=== PATIENT | female | born 1960 | race Caucasian/White ===

== ENCOUNTER 2022-03-06 00:32 | Day surgery (SDC) | payer OTHER, SELFPAY ==
[2022-01-16 12:54] VITALS: BMI 31.2
--- NOTE | 2022-01-16 12:58 | PC.NURSE ---
Report to the Outpatient Waiting Room, entrance under the green pavilion located off [facility], at time __1130__ on date __01/23/22 . OR Time: _1330_. - You and your visitor will be asked a series of questions to screen for COVID 19 for your protection. - Only one visitor is allowed at this time. - The patient visitor is requested to leave or wait in car when not with patient. - A mask is required within the hospital. Patients may have clear liquids (water, carbonated beverages, clear teas, apple juice) until 3 hours prior to surgery with a maximum of 20 ounces. - No food from midnight until time of surgery - Infants may have breast milk until 4 hours before surgery, infant formula 6 hours prior to surgery. - Children will be allowed to drink immediately following surgery. If applicable, please bring a bottle or sippy cup to assist with drinking. Juice, water, soda, and popsicles are readily available. For infants on formula, please bring formula the day of surgery. Pacifiers are allowed. Take the following medications with a SIP of water the morning of surgery: NONE Medications to discontinue per physician NONE Date to take last dose Please no make-up, nail senegalese, hairspray, perfume, deodorant, or body powder the day of surgery. No jewelry (including any body piercings) or valuables the day of surgery, leave them at home. Please take a shower or bath the night before, or the morning of, surgery with an antibacterial soap. Wear comfortable, loose fitting clothing. Children are encouraged to wear pajamas. - Jewelry must be removed prior to entering the operating room. Rings and piercings that are not removed may be cut off. - The hospital will not accept responsibility for valuables. - Please leave all valuables, including medications, at home the day of surgery. If you are going home after surgery, a licensed chassis driver must drive you home. - NO public transportation without another adult. - We recommend that an adult stay with you for 24 hours following discharge. - We also recommend that you do not drive, make important decision, drink alcoholic beverages, or take any drugs that were not prescribed by your health care provider for at least 24 hours after your discharge time. For Pediatric surgeries, we recommend two adults accompany the child home (only one inside the building at this time). Follow any additional instructions given to you from your surgeon. If you or anyone in your household have experienced Covid symptoms in the past week, please notify your surgeon or the nurse liaison at the phone number below for possible testing. Telephone instructions given to __PATIENT__and asked if any additional questions and then verbalized understanding. Patient advised to call surgeon office or pre surgery nurse liaison [phone] if any additional questions.
[2022-02-27 14:44] VITALS: BMI 31.2
--- NOTE | 2022-02-27 15:01 | PC.NURSE ---
Addendum entered by Destiny Vidal RN 02/27/22 15:08: [employer] 03/03/22 Original Note: Report to the Outpatient Waiting Room, entrance under the green pavilion located off [facility], at time __1045 on date 03/06/22_. OR Time: _1245 . Time changes happen often and if your time is changed the preop area will call you the afternoon before. - You and your visitor will be asked to self-screen and do not enter if you have any COVID symptoms. - Only one visitor and NO children visitors are allowed at this time. - The patient visitor is requested to leave or wait in car when not with patient due to restrictions. - A mask is required within the hospital. Patients may have clear liquids (water, carbonated beverages, clear teas, apple juice) until 3 hours prior to surgery with a maximum of 20 ounces. - No food from midnight until time of surgery - Take the following medications with a SIP of water the morning of surgery: ____NONE Medications to discontinue per physician NONE Date to take last dose___NONE Please no make-up, nail english, hairspray, perfume, deodorant, or body powder the day of surgery. No jewelry (including any body piercings) or valuables the day of surgery, leave them at home. Please take a shower or bath the night before, or the morning of, surgery with an antibacterial soap. Wear comfortable, loose fitting clothing. Children are encouraged to wear pajamas. - Jewelry must be removed prior to entering the operating room. Rings and piercings that are not removed may be cut off. - The hospital will not accept responsibility for valuables. - Please leave all valuables, including medications, at home the day of surgery. If you are going home after surgery, a licensed electric pile driver operator must drive you home. - NO public transportation without another adult. - We recommend that an adult stay with you for 24 hours following discharge. - We also recommend that you do not drive, make important decision, drink alcoholic beverages, or take any drugs that were not prescribed by your health care provider for at least 24 hours after your discharge time. Follow any additional instructions given to you from your surgeon. If you or anyone in your household have experienced Covid symptoms in the past week, please notify your surgeon or the nurse liaison at the phone number below for possible testing. Telephone instructions given to __ALEX___and asked if any additional questions and then verbalized understanding. Patient advised to call surgeon office or pre surgery nurse liaison [phone] if any additional questions.
--- NOTE | 2022-03-06 08:31 | WPDHPUPDATE1 ---
History and Physical Update Update Date/Time: 03/06/22 08:31 History and Physical has been reviewed, including an updated exam of the patient. There are NO changes in the patient's condition. Risks, benefits, and alternatives have been discussed and questions answered. Patient agrees to proceed with procedure.
--- NOTE | 2022-03-06 08:32 | PM.HPGS ---
History of Present Illness History of Present Illness Consent: Risks, benefits, and alternatives have been discussed and questions answered. Patient agrees to proceed with procedure. Chief complaint: Post Menopaual Bleeding Narrative: Dana Dozier is a 61 year old female who saw her primary physician in November for postmenopausal bleeding. Workup included a pelvic ultrasound which revealed a 1cm thickened endometrium. Patient was therefore referred for further workup. Patient was initially scheduled for hysteroscopy D&C but developed COVID and had to be rescheduled. Patient presents today for D&C hysteroscopy. Risks of infection, bleeding, perforation, and possible pathology were reviewed. Patient voices understanding and agrees to proceed. 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 Social History Social History (Updated 02/27/22 @ 14:59 by Destiny Vidal RN) Smoking status: Never smoker Substance use: never Living arrangements: with family Spiritual care concerns: No Meds Home Medications and Allergies Home Medications Medication Instructions Recorded Confirmed Type lactobacillus combination no.8 3 3 cell PO DAILY 01/16/22 01/16/22 History billion cell capsule Allergies Allergy/AdvReac Type Severity Reaction Status Date / Time No Known Allergies Allergy Verified 01/16/22 12:51 Exam Const: General: healthy appearing and alert Orientation/consciousness: patient oriented x3 Resp: Effort & Inspection: normal respiratory effort GI: GI Palp: Yes Soft to palpation, No Tenderness to palpation present (GI) and No Palpable mass present : External Female Exam: normal external appearance Speculum Exam - Vagina: normal appearance of the vagina and normal vaginal discharge Speculum Exam - Cervix: normal appearance of the cervix Bimanual exam- vagina & uterus: uterine size normal and consistency normal Bimanual Exam- Adnexa, other: normal adnexae and No adnexal tenderness Neuro: General: patient oriented x3 Assessment and Plan Assessment and plan (1) Post-menopausal bleeding: Code(s): N95.0 - Postmenopausal bleeding Status: Acute Assessment and Plan: Plan to proceed with D&C hysteroscopy
[2022-03-06 11:00] VITALS: BP 154/85; PULSE 66; RESP 16; TEMP 36.5; O2SAT 99
[2022-03-06 11:23] VITALS: BMI 31.0
[2022-03-06] MEDS: LACTATED RINGERS 1,000 ML 30 ML IV CONT (11:25)
[2022-03-06] MEDS: ACETAMINOPHEN 500 MG TABLET 1000 MG PO (11:33)
--- NOTE | 2022-03-06 11:46 | P.PNAN_ITS ---
Anes - Initial Pre Proc Eval Procedure: Operation Date: 03/06/22 12:45 Proposed Procedures p Hysteroscopy Dilation and Curettage - Dora Caba MD Date/Time: 03/06/22 11:46 Surgeon: Dora Caba MD Pre Op Diagnosis: Post Menopausal Bleeding Patient Data Age: 61 Gender: F Height: 1.55 m Weight: 74.5 kg Last Vital Signs Temp 36.5 C 03/06/22 11:00 Pulse 66 03/06/22 11:00 Resp 16 03/06/22 11:00 BP 154/85 H 03/06/22 11:00 Pulse Ox 99 03/06/22 11:00 O2 Del Method Room Air 03/06/22 11:00 Allergies Allergy/AdvReac Type Severity Reaction Status Date / Time No Known Allergies Allergy Verified 03/06/22 11:22 Home Medications Medication Instructions Recorded Confirmed Type lactobacillus combination no.8 3 3 cell PO DAILY 01/16/22 01/16/22 History billion cell capsule Patient hx anesthesia problems: none Family hx anesthesia problems: none Results Review: All pre-operative results and documents have been reviewed as part of the pre- operative evaluation. 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 Social History Social History (Updated 03/06/22 @ 11:47 by Tim Herman MD) Years smoked: 20 Smoking status: Former smoker Substance use: never Living arrangements: with family Spiritual care concerns: No Anes - Eval Final PreProcedure Day of Procedure 03/06/22 11:46 Patient weight: obese Heart: regular rate and rhythm Lungs: clear to auscultation Airway: Mallampati scale class II Neurological: alert and oriented Last oral intake: >/= 8 hours ASA classification: II Emergent: no Anesthesia type and monitoring: general GIVS and standard monitoring Results Review: All pre-operative results and documents have been reviewed as part of the pre- operative evaluation. Informed Consent: The patient's anesthetic plan and its attendant risks and benefits were discussed with the patient/family/POA. Questions were solicited and answers provided to the satisfaction of the patient/family/POA.
[2022-03-06] MEDS: LIDOCAINE HCL 1% PF 30 ML VIAL 10 ML INFILTRATE (12:20)
--- NOTE | 2022-03-06 12:49 | W.PM.PROC2 ---
Procedure Note - Detailed Date of Procedure 03/06/22 Pre-op Diagnosis Post Menopausal Bleeding Post-op Diagnosis Same Procedure Performed D&C hysteroscopy with MyoSure resection of polyps Surgeon Dora Caba MD Anesthesia MAC and Local Findings uterus sounds to 8cm there is cluster of posterior uterine wall polyps Description of Procedure the patient is taken to the operating room and placed under anesthesia in the dorsal lithotomy position. She was prepped and draped in usual sterile fashion. [place] speculum was placed in the vagina and the cervix grasped on the anterior lip with a tenaculum. The uterus is sounded to 8cm. The cervix is serially dilated with [place]gar to an 8. The diagnostic hysteroscope was placed with the above-stated findings. The MyoSure scope and device are opened and placed. Under direct visualization the polyps are removed using the MyoSure device. The remainder of the endometrium appears grossly normal. The MyoSure and hysteroscope were removed and the medium sharp curette used to curette the endometrium until a good uterine cry was noted in all areas. Minimal materials obtained consistent with the atrophic appearance. all instruments were then removed and the patient is taken to recovery in stable condition. Sponge, needle, and instrument counts are correct per the OR staff. Estimated Blood Loss 5 Drains No Packing No Pathology Yes ( Endometrial shavings and curettings) Complications No immediate complications Condition Stable Disposition PACU
[2022-03-06 12:51] VITALS: BP 127/72; PULSE 71; RESP 14; O2SAT 100
[2022-03-06 13:20] VITALS: BP 167/80; PULSE 58; RESP 14; O2SAT 100
[2022-03-06 13:50] VITALS: BP 157/71; PULSE 55; RESP 14
== END 2022-03-06 13:54 | disposition home or self-care (01) ==
PROVIDERS: Visit Provider Obstetrics & Gynecology Gynecology
PROC: 0U5B8ZZ Destruction of Endometrium, Via Natural or Artificial Opening Endoscopic (ICD-10-PCS; CPT 58563; principal; 2022-03-06 12:45)
DX: N95.0 Postmenopausal bleeding (principal); N84.0 Polyp of corpus uteri; Z87.891 Personal history of nicotine dependence; E66.9 Obesity, unspecified; Z68.31 Body mass index [BMI] 31.0-31.9, adult
CPT/HCPCS: 58558; 88305; A9270; J1100; J2250; J2405; J2704; J3010; J7030; J7120

== ENCOUNTER 2023-07-12 10:40 | Emergency (ER) | payer OTHER, SELFPAY ==
[2023-07-12 10:50] VITALS: BP 145/93; PULSE 97; RESP 18; TEMP 37.1; O2SAT 98
[2023-07-12 10:54] VITALS: BP 145/93; PULSE 97; RESP 18; TEMP 37.1; O2SAT 98
--- NOTE | 2023-07-12 10:55 | ED.EAR ---
HPI - Ear Problem General Chief complaint: Ear Stated complaint: Ear Pain/Cough/Sore Throat Time Seen by Provider: 07/12/23 10:56 Source: patient, RN notes reviewed and old records reviewed Mode of arrival: ambulatory Limitations: no limitations History of Present Illness HPI Narrative: 62 year old female who [facility] with complaints of bilateral ear pressure, fullness sensation with sinus congestion and drainage and also productive cough with symptoms for the past 3 weeks. Patient reports that she had some initial sore throat that she reports has resolved. Patient states that she doesn't have ear pain just pressure. Patient reports that she had chills and sweats last night, denies any body aches or known fever. Patient reports that grandson had been ill also in past few weeks. Patient reports that she took COVID test at school today which was negative. Patient reports that she has taken Robitussin, Sudafed, DayQuil and NyQuil for symptoms without resolution. MD Complaint: other (cough, sinus congestion, headache, and ear pressure) Duration: constant Severity: moderate Discharge from ear: Reports no Treatment prior to arrival: other (Sudafed) Related Data Home Medications Medication Instructions Recorded Confirmed lactobacillus combination no.8 3 3 cell PO DAILY 01/16/22 07/12/23 billion cell capsule ergocalciferol (vitamin D2) 1,250 1,250 mcg PO WEEKLY 07/12/23 07/12/23 mcg (50,000 unit) capsule Allergies Allergy/AdvReac Type Severity Reaction Status Date / Time No Known Allergies Allergy Verified 07/12/23 10:53 Review of Systems Review of Systems: CONSTITUTIONAL:Reports malaise, chills, sweats, unknown if fevers EYES: Denies visual changes, redness, or discharge. ENT: Reports rhinorrhea, congestion, sinus pressure, ear pressure, and no present sore throat. CARDIOVASCULAR: Denies chest pain, palpitations, or edema. RESPIRATORY: Reports cough.? Denies dyspnea. GASTROINTESTINAL: Denies abdominal pain, nausea, vomiting, diarrhea SKIN: Denies rash or itching. MUSCULOSKELETAL: Denies myalgia. NEUROLOGIC: reports headache. 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 There is no relevant family history pertinent to the presenting complaint Exam Narrative: GENERAL: Well-appearing, well-nourished, and in no acute distress. HEAD: Normocephalic EYES: PERRLA, conjunctivae clear ENT: Nares clear, turbinates edematous and erythematous, clear discharge. Mucous membranes moist. TM pearly mensah with dull light reflex bilaterally; no tragal tenderness. Oropharynx erythematous without lesions. Tonsils not enlarged and without exudate, no drooling, no hoarseness, no trismus, uvula midline.post nasal discharge NECK: Supple. No lymphadenopathy CHEST: Clear to auscultation, breath sounds equal. No wheezing, rhonchi, rales, or stridor. No respiratory distress, speaks in full sentences.cough noted SAO2 98% on room air HEART: Regular rate and rhythm. No murmur heard. SKIN: Warm, dry, no rash. NEURO: Alert and oriented x3. PSYCH: Normal mood and affect Course Course Emergency Course: Patient is aware of diagnosis, understands and agrees to treatment plan.? Anticipatory guidance given.? Brittany
== END 2023-07-12 11:28 | disposition home or self-care (01) ==
PROVIDERS: Emergency Provider Registered Nurse
DX: J01.40 Acute pansinusitis, unspecified (principal); Z87.891 Personal history of nicotine dependence
CPT/HCPCS: 99213; G0463